=== PATIENT | male | born 1950 | race Caucasian/White ===

== ENCOUNTER 2021-03-22 09:11 | Day surgery (SDC) | payer OTHER, MEDICARE ==
[~2021-03-22 09:11] MED LIST: Lactated Ringers 1,000 ML IV PRN
[2021-03-22] MEDS ORDERED: fentaNYL 100 MCG/2 ML SDV IV ONE (09:12)
[2021-03-22] MEDS ORDERED: Midazolam 1 MG/ML 2 ML SDV IV ONE (09:12)
[2021-03-22] MEDS: Sodium Chloride 0.9% 10 ML Syringe FLUSH PRN (09:39)
[2021-03-22] MEDS: acetaZOLAMIDE 500 MG Cap.ER PO ONE (11:11)
== END 2021-03-22 11:32 | disposition home or self-care (01) ==
LOC: FB.SDS 09:11
PROVIDERS: ATTEND Ophthalmology
DX: H25.13 Age-related nuclear cataract, bilateral (principal); H18.511 Endothelial corneal dystrophy, right eye; H01.001 Unspecified blepharitis right upper eyelid; H01.004 Unspecified blepharitis left upper eyelid; I10 Essential (primary) hypertension; K21.9 Gastro-esophageal reflux disease without esophagitis; E78.5 Hyperlipidemia, unspecified; E66.09 Other obesity due to excess calories; E53.8 Deficiency of other specified B group vitamins; D50.9 Iron deficiency anemia, unspecified; Z79.899 Other long term (current) drug therapy
CPT/HCPCS: 00142-QZ; A9270-GY; J2250; J3010; V2632

== ENCOUNTER 2021-05-03 10:33 | Day surgery (SDC) | payer OTHER, MEDICARE ==
[~2021-05-03 10:33] MED LIST changes: +Sodium Chloride 0.9% 10 ML Syringe FLUSH PRN; +acetaZOLAMIDE 500 MG Cap.ER PO ONE
[2021-05-03] MEDS ORDERED: Tetracaine HCl/PF 0.5% 4 ML Bottle ONE (11:43)
[2021-05-03] MEDS ORDERED: Brimonidine 0.2% Ophth Soln 5 ML Bottle ONE (11:53)
[2021-05-03] MEDS ORDERED: Dexamethasone/Tobramycin 0.1-0.3% Ophth Susp 2.5 ML Bottle ONE (11:53)
[2021-05-03] MEDS ORDERED: acetaZOLAMIDE 500 MG Cap.ER PO ONE (13:00)
== END 2021-05-03 12:48 | disposition home or self-care (01) ==
LOC: FB.SDS 10:33
PROVIDERS: ATTEND Ophthalmology
DX: H25.13 Age-related nuclear cataract, bilateral (principal); H18.511 Endothelial corneal dystrophy, right eye; H01.001 Unspecified blepharitis right upper eyelid; H01.004 Unspecified blepharitis left upper eyelid; K21.9 Gastro-esophageal reflux disease without esophagitis; D50.9 Iron deficiency anemia, unspecified; I10 Essential (primary) hypertension; E78.00 Pure hypercholesterolemia, unspecified; E66.01 Morbid (severe) obesity due to excess calories; Z68.35 Body mass index [BMI] 35.0-35.9, adult; Z79.899 Other long term (current) drug therapy; Z91.09 Other allergy status, other than to drugs and biological substances
CPT/HCPCS: 00142-QZ; A9270-GY; V2632

== ENCOUNTER 2024-06-20 07:18 | Emergency (ER) | payer OTHER, MEDICARE | END 2024-06-20 08:00 | LOC: FB.ED 07:18 | DX: N50.811 Right testicular pain (principal); I10 Essential (primary) hypertension; E78.00 Pure hypercholesterolemia, unspecified; E66.9 Obesity, unspecified; Z79.899 Other long term (current) drug therapy; Z68.35 Body mass index [BMI] 35.0-35.9, adult | CPT/HCPCS: 99284 ==